=== PATIENT | female | born 1990 | race Caucasian/White ===

== ENCOUNTER 2019-06-16 15:43 | Emergency (ER) | payer BC, OTHER ==
[2019-06-16] MEDS ORDERED: TETANUS & DIPHTHERIA TOX,ADULT 0.5 ML VIAL ONE (16:20)
--- NOTE | 2019-06-16 17:14 | RAD REPORT ---
EXAM DESCRIPTION: CT - Head C Spine Mpr Wo Con - 06/16/2019 5:01 pm CLINICAL HISTORY: Head and neck injury status post injury. Head and neck pain COMPARISON: None. TECHNIQUE: Computed axial tomography of the head and cervical spine was obtained. Sagittal and coronal reconstruction was performed. All CT scans are performed using dose optimization technique as appropriate and may include automated exposure control or mA/KV adjustment according to patient size. FINDINGS: An intracranial bleed is not seen. The ventricles are normal in caliber. An extra-axial fl uid collection is not noted.Fluid within the visualized sinuses and mastoids is not seen A cervical fracture is not visualized. No dislocation is noted. IMPRESSION: No acute intracranial abnormality is seen. A cervical fracture is not visualized. If the patient continues to have symptoms to suggest intracra nial /spinal cord pathology then MRI would be recommended
[2019-06-16] MEDS ORDERED: LIDOCAINE 1% MPF 5 ML VIAL ONE (17:31)
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
[2019-06-16 18:13] LABS: Urine Blood 2+ (NEG); Urine Glucose NEGATIVE (NEG); Urine Protein NEGATIVE (NEG)
[2019-06-16 20:54] VITALS: TEMP 98.6; O2SAT 100
[2019-06-16 20:57] VITALS: BP 120/72
== END 2019-06-16 18:10 | disposition home or self-care (01) ==
LOC: ER 15:43
PROC: 0JQ00ZZ Repair Scalp Subcutaneous Tissue and Fascia, Open Approach (ICD-10-PCS; principal; 2019-06-16)
DX: S01.01XA Laceration without foreign body of scalp, initial encounter (principal); W22.8XXA Striking against or struck by other objects, initial encounter; Y93.9 Activity, unspecified; Y92.9 Unspecified place or not applicable; Z23 Encounter for immunization
CPT/HCPCS: 70450; 72125; 81003; 81025; 90471; 90714; 99284